=== PATIENT | male | born 1985 | race Two or more races ===

== ENCOUNTER 2017-01-16 17:31 | Emergency (ER) | payer BC ==
[~2017-01-16] VITALS: Ht 188 cm; Wt 108.9 kg
[2017-01-16 18:01] VITALS: BP 158/91
[2017-01-16] MEDS ORDERED: IV NORMAL SALINE 1000ML BAG 1,000 ML IV ONE ×2 (18:15→19:30)
[2017-01-16 18:43] LABS: BASO # 0.1 x10^3/uL (0.0-0.2); BASO % 1 % (0-3); EOS % 0 % (0-3); HEMATOCRIT 43.9 % (39.0-53.0); HEMOGLOBIN 15.7 g/dL (13.0-17.5); LYMPH # 0.8 x10^3/uL (1.0-4.8); LYMPH % 8 % (24-48); MEAN CORPUSCULAR HEMOGLOBIN 27 pg (25-35); MEAN CORPUSCULAR HGB CONC 36 g/dL (31-37); MEAN CORPUSCULAR VOLUME 77 fL (79-100); MONO % 5 % (0-9); NEUT % 87 % (31-73); PLATELET COUNT 199 x10^3/uL (140-400); RED BLOOD COUNT 5.74 x10^6/uL (4.30-5.70); RED CELL DISTRIBUTION WIDTH 13.5 % (11.5-14.5); WHITE BLOOD COUNT 10.5 x10^3/uL (4.0-11.0)
[2017-01-16] MEDS ORDERED: FAMOTIDINE 20 MG/2 ML VIAL IVP ONE (18:45)
[2017-01-16] MEDS ORDERED: ONDANSETRON PF 4 MG/2 ML VIAL. IV ONE (18:45)
[2017-01-16] MEDS ORDERED: KETOROLAC TROMETHAMINE 30 MG/ML INJ. IV ONE (18:45)
[2017-01-16 18:56] LABS: CALCIUM 8.9 mg/dL (8.5-10.1); GFR 86.1; POTASSIUM 4.2 mmol/L (3.5-5.1)
--- NOTE | 2017-01-16 18:58 | PHYS DOC ---
Past Medical History Past Medical History: Diabetes-Type II, Hypertension Past Surgical History: No Surgical History Alcohol Use: Occasionally Drug Use: None Adult General Chief Complaint Chief Complaint: HEADACHE HPI HPI Patient is a 31 year old male with history of diabetes type 2, hypertension, who presents today with a 6 out of 10 generalize headache that began yesterday with nausea and vomiting. Patient states he supposed to be on a couple medicines for high blood pressure as well as diabetes that he has not taken for a couple years. He states he has no primary care doctor. Patient denies any hematemesis. Denies any diarrhea. Denies any abdominal pain. Denies any chest pain or shortness of breath. Denies this being the worst headache in his life. Review of Systems Review of Systems Constitutional: Denies fever or chills [] Eyes: Denies change in visual acuity, redness, or eye pain [] HENT: Denies nasal congestion or sore throat [] Respiratory: Denies cough or shortness of breath [] Cardiovascular: No additional information not addressed in HPI [] GI: abdominal pain, nausea, vomiting, : Denies dysuria or hematuria [] Musculoskeletal: Denies back pain or joint pain [] Integument: Denies rash or skin lesions [] Neurologic: headache Endocrine: Denies polyuria or polydipsia [] Current Medications Current Medications Current Medications Medications (Trade) Dose Ordered Sig/Elan Start Time Stop Time Status Last Admin Dose Admin Famotidine (Pepcid) 20 mg 1X ONCE 01/16/17 18:45 01/16/17 18:46 DC 01/16/17 19:07 20 MG Insulin Human Regular (NovoLIN R VIAL) 8 unit 1X ONCE 01/16/17 19:30 01/16/17 19:31 DC Ketorolac Tromethamine (Toradol) 30 mg 1X ONCE 01/16/17 18:45 01/16/17 18:46 DC 01/16/17 19:07 30 MG Ondansetron HCl (Zofran) 4 mg 1X ONCE 01/16/17 18:45 01/16/17 18:46 DC 01/16/17 19:07 4 MG Sodium Chloride 1,000 ml @ 1,000 mls/hr 1X ONCE 01/16/17 19:30 01/16/17 20:29 01/16/17 19:56 1,000 MLS/HR Allergies Allergies Allergies Coded Allergies Type Severity Reaction Last Updated Verified No Known Drug Allergies 01/16/17 No Physical Exam Physical Exam Constitutional: Well developed, well nourished, no acute distress, non-toxic appearance. [] HENT: Normocephalic, atraumatic, bilateral external ears normal, oropharynx moist, no oral exudates, nose normal. [] Eyes: PERRLA, EOMI, conjunctiva normal, no discharge. [] Neck: Normal range of motion, no tenderness, supple, no stridor. [] Cardiovascular:Heart rate regular rhythm, no murmur [] Lungs & Thorax: Bilateral breath sounds clear to auscultation [] Abdomen: Bowel sounds normal, soft, no tenderness, no masses, no pulsatile masses. [] Skin: Warm, dry, no erythema, no rash. [] Back: No tenderness, no CVA tenderness. [] Extremities: No tenderness, no cyanosis, no clubbing, ROM intact, no edema. [] Neurologic: Alert and oriented X 3, normal motor function, normal sensory function, no focal deficits noted. Cranial nerves II through XII intact Psychologic: Affect normal, judgement normal, mood normal. [] Current Patient Data Vital Signs Vital Signs Date Time Temp Pulse Resp B/P (MAP) Pulse Ox O2 Delivery O2 Flow Rate FiO2 01/16/17 18:01 97.9 106 18 98 Room Air 97.9 Lab Values Laboratory Tests Test 01/16/17 18:35 01/16/17 19:50 White Blood Count 10.5 x10^3/uL (4.0-11.0) Red Blood Count 5.74 x10^6/uL (4.30-5.70) H Hemoglobin 15.7 g/dL (13.0-17.5) Hematocrit 43.9 % (39.0-53.0) Mean Corpuscular Volume 77 fL (79-100) L Mean Corpuscular Hemoglobin 27 pg (25-35) Mean Corpuscular Hemoglobin Concent 36 g/dL (31-37) Red Cell Distribution Width 13.5 % (11.5-14.5) Platelet Count 199 x10^3/uL (140-400) Neutrophils (%) (Auto) 87 % (31-73) H Lymphocytes (%) (Auto) 8 % (24-48) L Monocytes (%) (Auto) 5 % (0-9) Eosinophils (%) (Auto) 0 % (0-3) Basophils (%) (Auto) 1 % (0-3) Neutrophils # (Auto) 9.1 x10^3uL (1.8-7.7) H Lymphocytes # (Auto) 0.8 x10^3/uL (1.0-4.8) L Monocytes # (Auto) 0.5 x10^3/uL (0.0-1.1) Eosinophils # (Auto) 0.0 x10^3/uL (0.0-0.7) Basophils # (Auto) 0.1 x10^3/uL (0.0-0.2) Sodium Level 132 mmol/L (136-145) L Potassium Level 4.2 mmol/L (3.5-5.1) Chloride Level 96 mmol/L (98-107) L Carbon Dioxide Level 26 mmol/L (21-32) Anion Gap 10 (6-14) Blood Urea Nitrogen 11 mg/dL (8-26) Creatinine 1.0 mg/dL (0.7-1.3) Estimated GFR (Cockcroft-Gault) 86.1 BUN/Creatinine Ratio 11 (6-20) Glucose Level 341 mg/dL (70-99) H Calcium Level 8.9 mg/dL (8.5-10.1) Total Bilirubin 0.9 mg/dL (0.2-1.0) Aspartate Amino Transferase (AST) 39 U/L (15-37) H Alanine Aminotransferase (ALT) 69 U/L (16-63) H Alkaline Phosphatase 84 U/L (46-116) Total Protein 7.9 g/dL (6.4-8.2) Albumin 3.7 g/dL (3.4-5.0) Albumin/Globulin Ratio 0.9 (1.0-1.7) L Lipase 139 U/L (73-393) Ethyl Alcohol Level < 10 mg/dL (0-10) Urine Opiates Screen Neg (NEG) Urine Methadone Screen Neg (NEG) Urine Barbiturates Neg (NEG) Urine Phencyclidine Screen Neg (NEG) Urine Amphetamine/Methamphetamine Neg (NEG) Urine Benzodiazepines Screen Neg (NEG) Urine Cocaine Screen Neg (NEG) Urine Cannabinoids Screen Neg (NEG) Urine Ethyl Alcohol Neg (NEG) Laboratory Tests 01/16/17 18:35 Laboratory Tests 01/16/17 18:35 EKG EKG [] Radiology/Procedures Radiology/Procedures [] Course & Med Decision Making Course & Med Decision Making Pertinent Labs and Imaging studies reviewed. (See chart for details) This is a 31-year-old male patient with history of diabetes and hypertension who presents today with a headache nausea and vomiting that began yesterday. He states he is supposed to be on blood pressure medicine as well as diabetes medicine but he has not taken them a for couple years. CBC with no acute findings, CMP with sodium of 132, glucose of 341, no anion gap , AST 39, ALT 69. Blood pressure 158/91. Patient was given 2 L of IV fluid and insulin in the ED. He was also given nausea medicine. Patient was instructed to follow-up with his own doctor tomorrow. I sent him home with metformin which he supposed to be taking. He was provided return precautions and discharged in stable condition. Dragon Disclaimer Dragon Disclaimer This electronic medical record was generated, in whole or in part, using a voice recognition dictation system. Departure Departure Impression: Primary Impression: Hyperglycemia Additional Impressions: Hypertension Nausea and vomiting Headache Elevated liver enzymes Disposition: HOME, SELF-CARE Condition: STABLE Referrals: CYRUS HOLT MD (PCP) Follow-up with your doctor tomorrow Patient Instructions: Diabetes Meal Planning Guide, Diabetes and Exercise- SportsMed, Hypertension, Nausea and Vomiting, [id number] Additional Instructions: You were seen for nausea vomiting and a headache. Your blood sugar was 341. Blood pressure was 158/91 This is a result of people not taking their diabetes medicine, high blood pressure medicine and not following diabetes diet and hypertension diet. Please follow-up with your own doctor tomorrow. Please consider cutting back on his sugars. Cut back on your salt intake and fatty food intake. Start exercising. Scripts Ondansetron Hcl (ZOFRAN) 4 Mg Tablet 1 TAB PO Q6HRS, #20 TAB Prov: FAWAD TORRES [employer]PORATE LEGAL MANAGER 01/16/17 Metformin Hcl (METFORMIN HCL) 500 Mg Tablet 500 MG PO BIDWMEALS for ANTI-DIABETIC, #30 TAB 0 Refills Prov: SAMANTAAFAWAD [employer]PORATE LEGAL MANAGER 01/16/17 Problem Qualifiers Additional Impressions: Hypertension Hypertension type: unspecified secondary hypertension Qualified Codes: I15.9 - Secondary hypertension, unspecified Nausea and vomiting Vomiting type: unspecified Vomiting Intractability: non-intractable Qualified Codes: R11.2 - Nausea with vomiting, unspecified Headache Headache type: unspecified Headache chronicity pattern: unspecified pattern Intractability: not intractable Qualified Codes: R51 - Headache NETTIEMICHAELFAWAD ALEXUS January 16, 2017 18:58
[2017-01-16 19:11] LABS: ALBUMIN 3.7 g/dL (3.4-5.0); ALBUMIN/GLOBULIN RATIO 0.9 (1.0-1.7); TOTAL BILIRUBIN 0.9 mg/dL (0.2-1.0); TOTAL PROTEIN 7.9 g/dL (6.4-8.2)
[2017-01-16] MEDS ORDERED: INSULIN REGULAR 100 UNIT/ML 10ML VIAL. IV ONE (19:30)
[2017-01-16 20:08] LABS: BILIRUBIN,URINE NEGATIVE (NEG); GLUCOSE,URINE >=1000 mg/dL (NEG); NITRITE,URINE NEGATIVE (NEG); PROTEIN,URINE NEGATIVE (NEG-TRACE); UROBILINOGEN,URINE 0.2 mg/dL (0.2 mg/dL)
[2017-01-16 20:13] LABS: BARBITURATES NEG (NEG); BENZODIAZEPINES NEG (NEG); CANNABINOIDS NEG (NEG); COCAINE NEG (NEG); METHADONE NEG (NEG); OPIATES NEG (NEG); PHENCYCLIDINE NEG (NEG)
[2017-01-16] MEDS ORDERED: ONDA4TAB7 PO (20:33)
[2017-01-16] MEDS ORDERED: METF500T4 PO (20:33)
[2017-01-16 20:34] LABS: BACTERIA,URINE FEW /HPF (0-FEW)
== END 2017-01-16 21:39 | disposition home or self-care (01) ==
LOC: ER 17:31
DX: E11.65 Type 2 diabetes mellitus with hyperglycemia (principal); I10 Essential (primary) hypertension; R51 Headache; R11.2 Nausea with vomiting, unspecified; R74.8 Abnormal levels of other serum enzymes
CPT/HCPCS: 36415; 80053; 80305; 80320; 81001; 82947; 83690; 85027; 96361; 96374; 96375; 99284; J1815; J1885; J2405; J7030; S0028; G0480; G0481

== ENCOUNTER 2017-05-31 02:47 | Emergency (ER) | payer BC ==
[~2017-05-31] VITALS: Ht 185.4 cm; Wt 108.9 kg
[~2017-05-31 02:47] MED LIST: METF500T4 PO; ONDA4TAB7 PO
[2017-05-31 02:54] VITALS: BP 163/99
[2017-05-31] MEDS ORDERED: LIDOCAINE 1% / SOD BICARB 8.4% 20 ML VIAL. IJ ONE (03:45)
[2017-05-31] MEDS ORDERED: DIPHTH,PERTUSS(ACELL),TET TOX 0.5 ML DISP.SYRIN. VAX IM ONE (03:45)
--- NOTE | 2017-05-31 03:45 | PHYS DOC ---
Past Medical History Past Medical History: Diabetes-Type II, Hypertension Past Surgical History: No Surgical History Alcohol Use: Occasionally Drug Use: None Adult General Chief Complaint Chief Complaint: LACERATION/AVULSION HPI HPI Patient is a 32 year old M who presents with laceration to left thumb. Patient is a right-handed individual and decided to make some food in the middle of night and cut himself on his left thumb with a steak knife. Patient denied any other injuries. Patient has no other complaints. Review of Systems Review of Systems GEN: Denies fevers, chills, sweats HEENT: Denies blurred vision, sore throat CV: Denies chest pain RESP: Denies shortness of air, cough GI: Denies n/v/d NEURO: Denies confusion, dizziness MSK: Left thumb laceration Current Medications Current Medications Current Medications Medications (Trade) Dose Ordered Sig/Elan Start Time Stop Time Status Last Admin Dose Admin Diphtheria/ Tetanus/Acell Pertussis (Boostrix) 0.5 ml ONCE ONCE 05/31/17 03:45 05/31/17 03:46 DC Lidocaine/Sodium Bicarbonate (Buffered Lidocaine 1%) 20 ml 1X ONCE 05/31/17 03:45 05/31/17 03:46 DC 05/31/17 03:54 20 ML Allergies Allergies Allergies Coded Allergies Type Severity Reaction Last Updated Verified No Known Drug Allergies 01/16/17 No Physical Exam Physical Exam GEN.: No apparent distress. Alert and oriented. HEENT: Head is normocephalic, atraumatic NECK: Supple. LUNGS: CTAB. HEART: RRR, S1, S2 present. Peripheral pulses intact ABDOMEN: Soft, nontender. Positive bowel sounds. EXTREMITIES: Without any cyanosis. 3 cm laceration to the left thumb over the PIP NEUROLOGIC: Normal speech, normal tone PSYCHIATRIC: Normal affect, normal mood. SKIN: No ulcerations Current Patient Data Vital Signs Vital Signs Date Time Temp Pulse Resp B/P (MAP) Pulse Ox O2 Delivery O2 Flow Rate FiO2 05/31/17 02:54 97.9 102 18 98 Room Air 97.9 EKG EKG [] Radiology/Procedures Radiology/Procedures Indication: Left thumb laceration Procedure: The patient was placed in the appropriate position and anesthesia around the laceration was 1% lidocaine approximately 8 mL used as a digital block. The area was then cleaned with normal saline approximately 50 mL. The laceration was closed with 5 interrupted simple sutures using 5-0 nylon. The wound area was then dressed with bandage. Total repaired wound length: 3 cm. Other Items: None The patient tolerated the procedure tolerated. Complications: None.[] Course & Med Decision Making Course & Med Decision Making Pertinent Labs and Imaging studies reviewed. (See chart for details) MDM: After reviewing the chart, CC/HPI/PMH, physical exam, I do not believe the patient has a severe laceration warranting further workup and/or admission at this time. I do not be the patient has cut any tendons based on physical exam findings and for range of motion of the thumb. Patient was sutured at bedside. Patient is stable for discharge. It was recommended patient follow PCP and may need to see a hand surgeon for further evaluation and management. Wound care and went to watch out for signs of infection were explained to the patient and family. Additional verbal discharge instructions were provided to the patient and that if symptoms get worse or any new symptoms arise that are worrisome to the patient he is to return to the emergency room immediately [] Dragon Disclaimer Dragon Disclaimer This electronic medical record was generated, in whole or in part, using a voice recognition dictation system. Departure Departure Impression: Primary Impression: Laceration of left thumb Disposition: 01 HOME, SELF-CARE Condition: IMPROVED Referrals: CYRUS HOLT MD (PCP) Patient Instructions: Laceration Care, Adult Additional Instructions: Please follow-up with your family physician in the next 7-10 days for suture removal. If you see signs or symptoms of infection please return immediately to the emergency room HIREN SPANGLER DO May 31, 2017 03:45
== END 2017-05-31 04:28 | disposition home or self-care (01) ==
LOC: ER 02:47
DX: S61.012A Laceration without foreign body of left thumb without damage to nail, initial encounter (principal); I10 Essential (primary) hypertension; E11.9 Type 2 diabetes mellitus without complications; W26.0XXA Contact with knife, initial encounter; Y93.89 Activity, other specified; Y92.89 Other specified places as the place of occurrence of the external cause; Y99.8 Other external cause status
CPT/HCPCS: 12002; 90471; 90715; 99283-25